=== PATIENT | female | born 1975 | race Caucasian/White ===

== ENCOUNTER 2018-05-20 10:47 | Emergency (ER) | payer MEDICAID ==
[~2018-05-20] VITALS: Ht 165.1 cm; Wt 78.8 kg
--- NOTE | 2018-05-20 10:55 | NUR ---
triage: attempted to call pt for triage, no answer.
[2018-05-20] MEDS ORDERED: KETOROLAC 30 MG/1 ML IM ONE (11:30)
[2018-05-20] MEDS ORDERED: CYCLOBENZAPRINE 10 MG TABLET PO SCH (11:30)
[2018-05-20 11:38] LABS: BASOPHILS # (AUTO) 0.04 x10^3/uL (0-0.1); BASOPHILS % (AUTO) 1 % (0-1); EOSINOPHILS # (AUTO) 0.24 x10^3/uL (0-0.4); EOSINOPHILS % (AUTO) 3 % (1-7); LYMPHOCYTES # (AUTO) 2.67 x10^3/uL (1-3.4); LYMPHOCYTES % (AUTO) 32 % (22-44); MD NO; MEAN CORPUSCULAR HEMOGLOBIN 29.9 pg (27.0-34.8); MEAN CORPUSCULAR HGB CONC 33.7 g/dL (32.4-35.8); MEAN CORPUSCULAR VOLUME 88.9 fL (80-100); MONOCYTES % (AUTO) 5 % (2-9); NEUTROPHILS # (AUTO) 4.89 x10^3/uL (1.8-6.8); NEUTROPHILS % (AUTO) 59 % (42-75); PLATELET COUNT 371 x10^3/uL (130-400); RED CELL DISTRIBUTION WIDTH 13.5 % (9.6-15.2)
--- NOTE | 2018-05-20 11:41 | NUR ---
CONTENT CURATOR: PT TO ED ROOM 17 FROM LOBBY IN [facility] AT THIS TIME
[2018-05-20 11:46] LABS: ALBUMIN 3.9 g/dL (3.4-5.0); ANION GAP 7 mmol/L (5-15); CALCIUM 8.7 mg/dL (8.5-10.1); CHLORIDE 107 mmol/L (98-107)
[2018-05-20 11:49] LABS: ALANINE AMINOTRANSFERASE 42 U/L (12-78); ALKALINE PHOSPHATASE 121 U/L (45-117); BILIRUBIN,TOTAL 1.2 mg/dL (0.2-1.0); CREATININE 0.77 mg/dL (0.55-1.02); TOTAL PROTEIN 7.9 g/dL (6.4-8.2)
[2018-05-20] MEDS ORDERED: CYCLOBENZAPRINE 10 MG TABLET ONE (12:40)
[2018-05-20] MEDS ORDERED: KETOROLAC 30 MG/1 ML ONE (12:40)
[2018-05-20 14:01] VITALS: BP 114/72
--- NOTE | 2018-05-20 14:02 | NUR ---
Patient/Caregiver given discharge instructions and they have confirmed that they understand the instructions. Patient ambulatory with steady gait. PAIN 5/10
== END 2018-05-20 14:03 | disposition home or self-care (01) ==
LOC: ED 12:08
DX: M54.12 Radiculopathy, cervical region (principal); Z90.49 Acquired absence of other specified parts of digestive tract; Z90.710 Acquired absence of both cervix and uterus
CPT/HCPCS: 36415; 71046; 72050; 80053; 83690; 85025; 93005; 96372; 99284; J1885

== ENCOUNTER 2018-12-27 18:01 | Emergency (ER) | payer MEDICAID ==
[~2018-12-27] VITALS: Ht 165.1 cm; Wt 83.1 kg
[2018-12-27 20:59] VITALS: BP 116/78
== END 2018-12-27 21:06 | disposition home or self-care (01) ==
LOC: ED 20:50
DX: M62.838 Other muscle spasm (principal); M54.12 Radiculopathy, cervical region
CPT/HCPCS: 36415; 71045; 80048; 82040; 84484; 85025; 93005; 96372; 99284; J1885; 96367